=== PATIENT | male | born 1990 | race Caucasian/White ===

== ENCOUNTER 2018-05-11 20:12 | Emergency (ER) | payer MEDICAID ==
[2018-05-11] MEDS: HYDROCODONE/APAP (10/325) TAB PO (20:39)
== END 2018-05-11 22:40 | disposition home or self-care (01) ==
LOC: FTE 22:40
DX: S06.0X1A Concussion with loss of consciousness of 30 minutes or less, initial encounter (principal); S00.93XA Contusion of unspecified part of head, initial encounter; S10.93XA Contusion of unspecified part of neck, initial encounter; S20.219A Contusion of unspecified front wall of thorax, initial encounter; V49.9XXA Car occupant (driver) (passenger) injured in unspecified traffic accident, initial encounter
CPT/HCPCS: 70450; 71046; 72040; 99284-25